=== PATIENT | female | born 1935 | race Caucasian/White ===

== ENCOUNTER 2020-11-27 13:17 | Emergency (ER) | payer MEDICARE, BC ==
--- NOTE | 2020-11-27 13:37 | EDM.PDOC ---
ED HPI GENERAL MEDICAL PROBLEM - General Chief Complaint: Gastrointestinal Problem Stated Complaint: VOMITING Time Seen by Provider: 11/27/20 13:17 Source of Information: Reports: Patient History Limitations: Reports: No Limitations - History of Present Illness INITIAL COMMENTS - FREE TEXT/NARRATIVE: 85-year-old female past medical history hypertension, hyperlipidemia presents for dizziness and vomiting. Patient states that symptoms started about 3 days ago with dizziness. She describes the dizziness as a room spinning sensation and feels off balance with walking. 2 days ago she began to develop multiple episodes of nonbloody emesis. This was after the onset of the dizziness. She denies any associated abdominal pain, diarrhea. She denies any chest pain or shortness of breath. She denies any headache. She denies any one-sided body weakness. She does not have a history of vertigo. She notes that symptoms actually seem to be improving a bit today and she is had less vomiting but still very nauseated and still dizzy. - Related Data Allergies Allergy/AdvReac Type Severity Reaction Status Date / Time hydromorphone [From Dilaudid] Allergy Vomiting Verified 11/27/20 13:45 ED ROS GENERAL - Review of Systems Review Of Systems: Comprehensive ROS is negative, except as noted in HPI. ED EXAM, GENERAL - Physical Exam Exam: See Below Exam Limited By: No Limitations General Appearance: Alert, WD/WN, No Apparent Distress Eye Exam: Bilateral Eye: EOMI, PERRL Throat/Mouth: Normal Voice, No Airway Compromise Head: Atraumatic, Normocephalic Neck: Normal Inspection, Supple Respiratory/Chest: No Respiratory Distress, Lungs Clear, Normal Breath Sounds, No Accessory Muscle Use Cardiovascular: Normal Peripheral Pulses, Regular Rate, Rhythm GI/Abdominal: Soft, Non-Tender Back Exam: Normal Inspection Extremities: Normal Inspection Neurological: Alert, CN II-XII Intact, Normal Cognition, No Motor/Sensory Deficits Psychiatric: Normal Affect, Normal Mood Skin Exam: Warm, Dry, Intact, Normal Color #1 Interpretation EKG Date: 11/27/20 Time: 13:39 Rhythm: NSR Rate (Beats/Min): 63 [place]: Normal P-Wave: Present QRS: Normal ST-T: Normal QT: Normal AR/PQ Interval: 124 Comparison: NA - No Prior EKG EKG Interpretation Comments: normal EKG Course - Vital Signs Last Recorded V/S: Last Vital Signs Temp 97.0 F 11/27/20 13:39 Pulse 59 L 11/27/20 14:30 Resp 17 11/27/20 14:30 BP 166/59 H 11/27/20 14:30 Pulse Ox 99 11/27/20 14:30 - Orders/Labs/Meds Orders: Active Orders 24 hr Category Date Time Status EKG Documentation Completion [RC] STAT Care 11/27/20 13:37 Active CORONAVIRUS COVID-19 MOLLY [MOLEC] Stat Lab 11/27/20 14:35 Ordered UA W/NIXON RFLX IF INDICATED [URIN] Stat Lab 11/27/20 13:56 Ordered Potassium Chloride Riders [KCL in Water 40 MEQ/100 ML] Med 11/27/20 14:34 Active 40 meq Premix Bag 1 bag IV ONETIME Sodium Chloride 0.9% [Saline Flush] Med 11/27/20 13:56 Active 10 ml FLUSH ASDIRECTED PRN Sodium Chloride 0.9% [Saline Flush] Med 11/27/20 13:56 Active 2.5 ml FLUSH ASDIRECTED PRN Saline Lock Insert [OM.PC] Stat Oth 11/27/20 13:56 Ordered Medication Orders Potassium Chloride 40 meq/ (Premix) 100 mls @ 25 mls/hr IV ONETIME ONE Stop: 11/27/20 18:33 Sodium Chloride (Sodium Chloride 0.9% 10 Ml Syringe) 10 ml FLUSH ASDIRECTED PRN PRN Reason: Keep Vein Open Last Admin: 11/27/20 14:28 Dose: 10 ml Documented by: JERAMIE Sodium Chloride (Sodium Chloride 0.9% 2.5 Ml Syringe) 2.5 ml FLUSH ASDIRECTED PRN PRN Reason: Keep Vein Open Last Admin: 11/27/20 14:28 Dose: 2.5 ml Documented by: JERAMIE Labs: Laboratory Tests 11/27/20 11/27/20 11/27/20 Range/Units 13:42 13:42 13:42 WBC 9.92 (4.0-11.0) K/uL RBC 4.45 (4.30-5.90) M/uL Hgb 14.5 (12.0-16.0) g/dL Hct 40.3 (36.0-46.0) % MCV 90.6 (80.0-98.0) fL MCH 32.6 H (27.0-32.0) pg MCHC 36.0 (31.0-37.0) g/dL RDW Std Deviation 38.8 (28.0-62.0) fl RDW Coeff of Edson 12 (11.0-15.0) % Plt Count 224 (150-400) K/uL MPV 9.30 (7.40-12.00) fL Neut % (Auto) 65.1 (48.0-80.0) % Lymph % (Auto) 21.3 (16.0-40.0) % [place] % (Auto) 13.3 (0.0-15.0) % Eos % (Auto) 0.2 (0.0-7.0) % Baso % (Auto) 0.1 (0.0-1.5) % Neut # (Auto) 6.5 H (1.4-5.7) K/uL Lymph # (Auto) 2.1 (0.6-2.4) K/uL [place] # (Auto) 1.3 H (0.0-0.8) K/uL Eos # (Auto) 0.0 (0.0-0.7) K/uL Baso # (Auto) 0.0 (0.0-0.1) K/uL Nucleated RBC % 0.0 /100WBC Nucleated RBCs # 0 K/uL Sodium 131 L (136-145) mmol/L Potassium 2.5 L (3.5-5.1) mmol/L Chloride 91 L (98-107) mmol/L Carbon Dioxide 34.3 H (21.0-32.0) mmol/L BUN 15 (7.0-18.0) mg/dL Creatinine 0.9 (0.6-1.0) mg/dL Est Cr Clr Drug Dosing 33.86 mL/min Estimated GFR (MDRD) 59.4 ml/min Glucose 106 (74-106) mg/dL Calcium 8.8 (8.5-10.1) mg/dL Magnesium 1.8 (1.8-2.4) mg/dL Total Bilirubin 0.7 (0.2-1.0) mg/dL AST 20 (15-37) IU/L ALT 22 (14-63) IU/L Alkaline Phosphatase 66 (46-116) U/L Creatine Kinase 87 (26-308) U/L CK-MB (CK-2) 1.1 (0-3.6) ng/mL Troponin I 0.103 H* (0.000-0.056) ng/mL Total Protein 7.4 (6.4-8.2) g/dL Albumin 3.7 (3.4-5.0) g/dL Globulin 3.7 (2.6-4.0) g/dL Albumin/Globulin Ratio 1.0 (0.9-1.6) TSH 3rd Generation 2.09 (0.36-3.74) uIU/mL Meds: Medications Generic Name Dose Route Start Last Admin Trade Name Freq PRN Reason Stop Dose Admin Potassium Chloride 40 meq/ 100 mls @ 25 mls/hr 11/27/20 14:34 Premix IV 11/27/20 18:33 ONETIME ONE Sodium Chloride 10 ml 11/27/20 13:56 11/27/20 14:28 Sodium Chloride 0.9% 10 Ml Syringe FLUSH 10 ml ASDIRECTED PRN Administration Keep Vein Open Sodium Chloride 2.5 ml 11/27/20 13:56 11/27/20 14:28 Sodium Chloride 0.9% 2.5 Ml Syringe FLUSH 2.5 ml ASDIRECTED PRN Administration Keep Vein Open Discontinued Medications Generic Name Dose Route Start Last Admin Trade Name Freq PRN Reason Stop Dose Admin Aspirin 324 mg 11/27/20 14:31 11/27/20 14:34 Aspirin 81 Mg Tab.Chew PO 11/27/20 14:32 324 mg ONETIME ONE Administration Sodium Chloride 500 mls @ 999 mls/hr 11/27/20 13:56 11/27/20 14:28 Normal Saline IV 11/27/20 14:26 999 mls/hr .Bolus ONE Administration Meclizine HCl 25 mg 11/27/20 13:56 11/27/20 14:28 Meclizine 25 Mg Tab PO 11/27/20 13:57 25 mg ONETIME ONE Administration Ondansetron HCl 4 mg 11/27/20 13:56 11/27/20 14:28 Ondansetron 4 Mg/2 Ml Sdv IVPUSH 11/27/20 13:57 4 mg ONETIME ONE Administration - Re-Assessments/Exams Free Text/Narrative Re-Assessment/Exam: 11/27/20 15:01 Cardiac enzymes are elevated at 0.1. Potassium is quite low at 2.5. 40 mEq replacement ordered. Aspirin ordered for elevated troponin. I spoke with patient about necessity of transfer to higher level of care considering we will have cardiology coverage and she is agreeable. I have also spoke with the patient's son Tereso [phone] to inform him of the situation. 11/27/20 15:08 [facility] transfer [facility] to [facility] Dep[facility] - Departure Time of Disposition: 15:10 Disposition: DC/Tfer to Acute Hospital 02 Condition: Fair Clinical Impression: Hypokalemia, Elevated troponin - Discharge Information Referrals: Moises Plata MD [Primary Care Provider] - Forms: ED Department Discharge Sepsis Event Note (ED) - Focused Exam Vital Signs: Vital Signs Temp Pulse Resp BP Pulse Ox 11/27/20 14:30 59 L 17 166/59 H 99 11/27/20 13:39 97.0 F 62 17 162/75 H 100 - My Orders Last 24 Hours: My Active Orders 11/27/20 13:37 EKG Documentation Completion [RC] STAT 11/27/20 13:56 UA W/NIXON RFLX IF INDICATED [URIN] Stat Sodium Chloride 0.9% [Saline Flush] 10 ml FLUSH ASDIRECTED PRN Sodium Chloride 0.9% [Saline Flush] 2.5 ml FLUSH ASDIRECTED PRN Saline Lock Insert [OM.PC] Stat 11/27/20 14:34 Potassium Chloride Riders [KCL in Water 40 MEQ/100 ML] 40 meq Premix Bag 1 bag IV ONETIME 11/27/20 14:35 CORONAVIRUS COVID-19 MOLLY [MOLEC] Stat - Assessment/Plan Last 24 Hours: My Active Orders 11/27/20 13:37 EKG Documentation Completion [RC] STAT 11/27/20 13:56 UA W/NIXON RFLX IF INDICATED [URIN] Stat Sodium Chloride 0.9% [Saline Flush] 10 ml FLUSH ASDIRECTED PRN Sodium Chloride 0.9% [Saline Flush] 2.5 ml FLUSH ASDIRECTED PRN Saline Lock Insert [OM.PC] Stat 11/27/20 14:34 Potassium Chloride Riders [KCL in Water 40 MEQ/100 ML] 40 meq Premix Bag 1 bag IV ONETIME 11/27/20 14:35 CORONAVIRUS COVID-19 MOLLY [MOLEC] Stat
[2020-11-27] MEDS ORDERED: Sodium Chloride 0.9% 500 ML IV ONE (13:56)
[2020-11-27] MEDS ORDERED: Sodium Chloride 0.9% 10 ML Syringe FLUSH PRN (13:56)
[2020-11-27] MEDS ORDERED: Meclizine 25 MG Tab PO ONE (13:56)
[2020-11-27] MEDS ORDERED: Sodium Chloride 0.9% 2.5 ML Syringe FLUSH PRN (13:56)
[2020-11-27] MEDS ORDERED: Ondansetron 4 MG/2 ML SDV IVPUSH ONE (13:56)
--- NOTE | 2020-11-27 14:15 | CR ---
INDICATION: dizziness TECHNIQUE: Chest 1 view. COMPARISON: None. FINDINGS: Cardiovascular and mediastinum: Heart size and vasculature are normal in caliber and appearance. Mediastinum is within normal limits. Lungs and pleural space: Lungs are clear. No sign of infiltrate or mass. No sign of pleural effusion. No pneumothorax. Bones and soft tissues: No significant findings. IMPRESSION: Unremarkable chest. Dictated by: Shane Conner MD @ 11/27/2020 14:13:14 (Electronically Signed)
[2020-11-27 14:24] LABS: CARBON DIOXIDE,CO2 34.3 mmol/L (21.0-32.0); POTASSIUM,K 2.5 mmol/L (3.5-5.1)
[2020-11-27] MEDS ORDERED: Aspirin 81 MG Tab.Chew PO ONE (14:31)
[2020-11-27] MEDS ORDERED: Potassium Chloride Riders 40 MEQ in Premix Bag 1 BAG IV ONE (14:34)
--- NOTE | 2020-11-27 14:52 | CT ---
INDICATION: Dizziness. COMPARISON: None. TECHNIQUE: CT of the head without IV contrast. Coronal and sagittal reconstructions are provided. FINDINGS: No intracranial hemorrhage, mass effect, or evidence of acute infarct. No midline shift. No abnormal extra-axial fluid collections. Normal caliber ventricular system. Mild chronic small vessel ischemic disease. Orbits and extraocular muscles are symmetric. The paranasal sinuses and mastoid air cells are clear. No acute fracture. Soft tissues are unremarkable. IMPRESSION: : No acute intracranial findings. Please note that all CT scans at this facility use dose modulation, iterative reconstruction, and/or weight-based dosing when appropriate to reduce radiation dose to as low as reasonably achievable. Dictated by Preethi Best MD @ 11/27/2020 2:50:[address] Preethi Best @ Nov 27 2020 2:50PM
[2020-11-27] MEDS ORDERED: cefTRIAXone 1 GM in Sodium Chloride 0.9% 50 ML IV ONE (16:23)
[2020-11-27] MEDS ORDERED: cefTRIAXone 1 GM in Premix Bag 1 BAG IV ONE (16:29)
== END 2020-11-27 18:06 ==
LOC: MW.ED 13:17
DX: E87.6 Hypokalemia (principal); R79.89 Other specified abnormal findings of blood chemistry; I10 Essential (primary) hypertension; Z20.822 Contact with and (suspected) exposure to COVID-19; Z88.5 Allergy status to narcotic agent
CPT/HCPCS: 36415; 70450; 71045; 80053; 81001; 82550; 82553; 83735; 84443; 84484; 85025; 93005; 96365; 96366; 96375; 99285; A9270; J0696; J2405; J3480; J7030; U0002; 93010; 99284